=== PATIENT | male | born 1990 | race African-American/Black ===

== ENCOUNTER 2021-08-08 20:19 | Emergency (ER) | payer OTHER, SELFPAY ==
[2021-08-08] MEDS ORDERED: predniSONE 20 MG TAB ONE (21:25)
== END 2021-08-08 21:28 | disposition home or self-care (01) ==
LOC: BURERS 20:19
DX: T63.481A Toxic effect of venom of other arthropod, accidental (unintentional), initial encounter (principal); M79.89 Other specified soft tissue disorders; F17.220 Nicotine dependence, chewing tobacco, uncomplicated
CPT/HCPCS: 99283; J7512